=== PATIENT | female | born 1950 | race African-American/Black ===

== ENCOUNTER 2020-03-18 13:32 | Inpatient (IN) ==
[2020-03-18] MEDS ORDERED: ONDANSETRON 4 MG/2 ML VIAL IV PRN (16:00)
[2020-03-18] MEDS ORDERED: ALBUTEROL 2.5 MG/3 ML NEB RESP TX PRN (16:00)
[2020-03-18] MEDS ORDERED: DEXTROSE 50% 25 GM/50 ML VIAL IV PRN ×2 (16:08→17:54)
[2020-03-18] MEDS ORDERED: GLUCAGON 1 MG VIAL IM PRN ×2 (16:08→17:54)
[2020-03-18 17:13] LABS: Basophils % 0.1 % (0.0-0.8); Hematocrit 28.8 VOL% (35.7-47.0); Hemoglobin 8.8 GM/DL (12.0-16.0); Immature Granulocytes % 0.7 %; Immature Granulocytes Absolute 0.08 #; Lymphocytes # 1.1 10*3/uL (1.4-4.0); Lymphocytes % 9.7 % (21.3-54.2); Mean Corpuscular HGB Conc 30.6 GM/DL (32-36); Mean Corpuscular Volume 93.5 FL (87-102); Mean Platelet Volume 11.3 FL (9.6-12.0); Monocytes % 9.6 % (1.7-12.7); NRBC # 0.71 10*3/uL; Neutrophils % 79.9 % (38.7-73.9); Platelet Count 116 T/CUMM (130-400); Red Blood Count 3.08 MC/CUMM (3.8-5.5); Red Cell Distribution Width 17.8 % (9.3-17.3); White Blood Count 11.1 T/CUMM (4-12)
[2020-03-18 17:24] LABS: INR 1.7; PT Patient Result 17.4 SECS (9.8-11.9)
[2020-03-18] MEDS: LACTATED RINGERS 1,000 ML IV SCH (17:37)
[2020-03-18] MEDS: cefTRIAXone 1,000 MG in SYRINGE 1 EACH IV SCH (17:39)
[2020-03-18 17:40] LABS: Albumin 2.8 G/DL (3.4-5.0); Calcium 9.7 MG/DL (8.5-10.1); Osmolality,Calculated 313.7 MOS/KG (273-304); Thyroid Stimulating Hormone 0.212 uIU/ml (0.358-3.74); Total Protein 6.6 G/DL (6.4-8.3)
[2020-03-18 18:24] LABS: Hepatitis B Core IgM Quant 0.09 Index; Hepatitis B Surface Ag Quant < 0.10 Index; Hepatitis B Surface Ag Result Negative (Negative); Hepatitis C Virus Ab Quant < 0.02 Index; Hepatitis C Virus Ab Result Negative (Negative)
[2020-03-18 18:32] LABS: Bilirubin,Urine Negative (Negative); Blood, Urine Large mg/dL (Negative); Glucose,Urine (UA) Negative (Negative); Hyaline Casts,Urine 1 /LPF (0-3); Ketones,Urine Negative (Negative); Mucus,Urine Occasional /LPF (Occasional); Nitrite,Urine Negative (Negative); Protein,Urine 100 MG/DL; RBC,Urine 202 /HPF (0-4); Squamous Epithelial Cell,Urine Occasional /HPF (0-10); Transitional Epi Cells,Urine Occasional /HPF (<1); Urine Appearance CLOUDY (Clear); Urine Color Amber (Yellow); Urine Specific Gravity 1.033 (1.001-1.035); WBC,Urine 26 /HPF (0-6)
[2020-03-18] MEDS: ALBUTEROL/IPRATROPIUM 3 ML NEB RESP TX SCH (19:19)
[2020-03-18] MEDS: cloNIDine 0.1 MG TABLET PO PRN ×2 (20:37→22:18)
[2020-03-18] MEDS: ENOXAPARIN 40 MG/0.4 ML SYRINGE SUBCUT SCH (20:37)
[2020-03-18] MEDS: PANTOPRAZOLE 40 MG VIAL IV SCH (20:37)
[2020-03-18] MEDS: INSULIN LISPRO 100 UNIT/ML SUBCUT SCH (20:38)
[2020-03-19] MEDS: INSULIN LISPRO 100 UNIT/ML SUBCUT SCH ×6 (00:11→21:11)
[2020-03-19] MEDS: ALBUTEROL/IPRATROPIUM 3 ML NEB RESP TX SCH ×4 (01:45→19:38)
[2020-03-19] MEDS: cloNIDine 0.1 MG TABLET PO PRN ×2 (02:19→03:44)
[2020-03-19] MEDS ORDERED: hydrALAZINE 20 MG/1 ML VIAL IV ONE (04:38)
[2020-03-19 05:17] LABS: Alanine Aminotransferase 934 U/L (13-56); Albumin 2.6 G/DL (3.4-5.0); Alkaline Phosphatase 89 U/L (45-117); Aspartate Amino Transferase 595 U/L (0-37); Blood Urea Nitrogen 31 MG/DL (7-18); Calcium 9.8 MG/DL (8.5-10.1); Estimated Glom Filtration Rate 53 ML/MIN; Glucose 164 MG/DL (74-106); Total Protein 6.2 G/DL (6.4-8.3)
[2020-03-19] MEDS: LACTATED RINGERS 1,000 ML IV SCH (06:35)
[2020-03-19] MEDS ORDERED: cloNIDine 0.1 MG TABLET PO PRN (06:59)
[2020-03-19 07:53] LABS: % Iron Saturation 8.7 % (18-50)
[2020-03-19] MEDS ORDERED: SODIUM CHLORIDE 23.4% CONC INJ 38.5 MEQ in STERILE WATER INJ 1,000 ML IV SCH (08:30)
[2020-03-19] MEDS: levETIRAcetam LIQUID 100 MG/ML 30 ML/BOTTLE PO SCH ×2 (09:20→21:13)
[2020-03-19] MEDS: cloNIDine 0.1 MG TABLET PO SCH ×3 (09:20→20:15)
[2020-03-19] MEDS: hydrALAZINE 10 MG TABLET PO SCH ×3 (09:21→20:15)
[2020-03-19] MEDS: POTASSIUM CHLORIDE 20 MEQ/15 ML UDCUP PER TUBE PRN ×3 (09:24→15:19)
[2020-03-19] MEDS: hydrALAZINE 20 MG/1 ML VIAL IV PRN ×2 (12:14→21:10)
[2020-03-19 14:11] LABS: ABG Base Excess -4.2 MMOL/L (-2.5-2.5); ABG HCO3 20.9 MMOL/L (20-26); ABG PCO2 32.4 MM HG (35-48); ABG PH 7.396 (7.35-7.45); ABG TCO2 18.3 MMOL/L (23-27); Allen Test Positive
[2020-03-19] MEDS ORDERED: FUROSEMIDE 40 MG/4 ML VIAL IV ONE (16:40)
[2020-03-19] MEDS: cefTRIAXone 1,000 MG in SYRINGE 1 EACH IV SCH (17:07)
[2020-03-19 17:15] LABS: Calcium 9.1 MG/DL (8.5-10.1)
[2020-03-19] MEDS: carvediloL 25 MG TABLET PO SCH (20:15)
[2020-03-19] MEDS: SIMVASTATIN 40 MG TABLET PO SCH (21:11)
[2020-03-19] MEDS: MONTELUKAST 10 MG TABLET PO SCH (21:11)
[2020-03-19] MEDS: PANTOPRAZOLE 40 MG VIAL IV SCH (21:13)
[2020-03-19] MEDS: ENOXAPARIN 40 MG/0.4 ML SYRINGE SUBCUT SCH (21:13)
[2020-03-20] MEDS: INSULIN LISPRO 100 UNIT/ML SUBCUT SCH ×6 (00:21→21:46)
[2020-03-20] MEDS: POTASSIUM CHLORIDE 20 MEQ/15 ML UDCUP PER TUBE PRN ×4 (00:21→13:30)
[2020-03-20 04:16] LABS: Albumin 2.5 G/DL (3.4-5.0); Bilirubin,Total 0.7 MG/DL (0.2-1.0); Calcium 9.2 MG/DL (8.5-10.1); Total Protein 6.1 G/DL (6.4-8.3)
[2020-03-20] MEDS: ALBUTEROL/IPRATROPIUM 3 ML NEB RESP TX SCH ×3 (07:10→19:24)
[2020-03-20] MEDS ORDERED: MAGNESIUM SULF RIDER 2 GM in PREMIX 1 EACH IV PRN (08:09)
[2020-03-20] MEDS ORDERED: MAGNESIUM SULF RIDER 4 GM in PREMIX 1 EACH IV PRN (08:09)
[2020-03-20] MEDS: FUROSEMIDE 40 MG/4 ML VIAL IV SCH ×2 (09:23→15:35)
[2020-03-20] MEDS: levETIRAcetam LIQUID 100 MG/ML 30 ML/BOTTLE PO SCH ×2 (09:23→21:47)
[2020-03-20] MEDS: THIAMINE 100 MG TABLET PO SCH (09:24)
[2020-03-20] MEDS: cloNIDine 0.1 MG TABLET PO SCH ×3 (09:24→21:46)
[2020-03-20] MEDS: carvediloL 25 MG TABLET PO SCH ×2 (09:24→21:46)
[2020-03-20] MEDS: hydrALAZINE 10 MG TABLET PO SCH ×3 (09:24→21:46)
[2020-03-20] MEDS: ASPIRIN EC 81 MG TABLET PO SCH (09:24)
[2020-03-20] MEDS: cefTRIAXone 1,000 MG in SYRINGE 1 EACH IV SCH (17:43)
[2020-03-20] MEDS: PANTOPRAZOLE 40 MG VIAL IV SCH (21:45)
[2020-03-20] MEDS: MONTELUKAST 10 MG TABLET PO SCH (21:46)
[2020-03-20] MEDS: ENOXAPARIN 40 MG/0.4 ML SYRINGE SUBCUT SCH (21:46)
[2020-03-20] MEDS: SIMVASTATIN 40 MG TABLET PO SCH (21:46)
[2020-03-21] MEDS: INSULIN LISPRO 100 UNIT/ML SUBCUT SCH ×6 (00:54→22:28)
[2020-03-21 04:52] LABS: Basophils % 0.1 % (0.0-0.8); Eosinophils # 0.1 10*3/uL (0.0-0.87); Eosinophils % 0.9 % (0.00-10.9); Hematocrit 28.6 VOL% (35.7-47.0); Hemoglobin 9.2 GM/DL (12.0-16.0); Immature Granulocytes % 0.5 %; Immature Granulocytes Absolute 0.06 #; Lymphocytes # 1.7 10*3/uL (1.4-4.0); Lymphocytes % 14.1 % (21.3-54.2); Mean Corpuscular HGB Conc 32.2 GM/DL (32-36); Mean Corpuscular Volume 89.7 FL (87-102); Mean Platelet Volume 12.5 FL (9.6-12.0); Monocytes % 10.3 % (1.7-12.7); NRBC # 0.36 10*3/uL; Neutrophils % 74.1 % (38.7-73.9); Platelet Count 132 T/CUMM (130-400); Red Blood Count 3.19 MC/CUMM (3.8-5.5); Red Cell Distribution Width 17.8 % (9.3-17.3)
[2020-03-21 05:17] LABS: Albumin 2.3 G/DL (3.4-5.0); Bilirubin,Total 0.5 MG/DL (0.2-1.0); Calcium 8.7 MG/DL (8.5-10.1); Osmolality,Calculated 300.1 MOS/KG (273-304); Total Protein 5.8 G/DL (6.4-8.3)
[2020-03-21] MEDS: ALBUTEROL/IPRATROPIUM 3 ML NEB RESP TX SCH ×3 (07:39→19:39)
[2020-03-21] MEDS: cloNIDine 0.1 MG TABLET PO SCH ×3 (08:53→21:31)
[2020-03-21] MEDS: hydrALAZINE 10 MG TABLET PO SCH ×3 (08:53→21:31)
[2020-03-21] MEDS: carvediloL 25 MG TABLET PO SCH ×2 (08:53→21:31)
[2020-03-21] MEDS: THIAMINE 100 MG TABLET PO SCH (08:53)
[2020-03-21] MEDS: ASPIRIN EC 81 MG TABLET PO SCH (08:54)
[2020-03-21] MEDS: levETIRAcetam LIQUID 100 MG/ML 30 ML/BOTTLE PO SCH ×2 (08:54→21:31)
[2020-03-21] MEDS: FUROSEMIDE 40 MG/4 ML VIAL IV SCH ×2 (08:54→15:28)
[2020-03-21] MEDS: cefTRIAXone 1,000 MG in SYRINGE 1 EACH IV SCH (17:45)
[2020-03-21] MEDS: MONTELUKAST 10 MG TABLET PO SCH (21:31)
[2020-03-21] MEDS: SIMVASTATIN 40 MG TABLET PO SCH (21:31)
[2020-03-21] MEDS: PANTOPRAZOLE 40 MG VIAL IV SCH (21:32)
[2020-03-21] MEDS: ENOXAPARIN 40 MG/0.4 ML SYRINGE SUBCUT SCH (21:32)
[2020-03-22] MEDS: INSULIN LISPRO 100 UNIT/ML SUBCUT SCH ×6 (01:58→20:36)
[2020-03-22 05:39] LABS: Basophils % 0.1 % (0.0-0.8); Eosinophils # 0.1 10*3/uL (0.0-0.87); Eosinophils % 0.6 % (0.00-10.9); Hematocrit 30.8 VOL% (35.7-47.0); Hemoglobin 9.8 GM/DL (12.0-16.0); Immature Granulocytes % 0.6 %; Immature Granulocytes Absolute 0.06 #; Lymphocytes # 1.7 10*3/uL (1.4-4.0); Lymphocytes % 16.5 % (21.3-54.2); Mean Corpuscular HGB Conc 31.8 GM/DL (32-36); Mean Corpuscular Volume 87.7 FL (87-102); Mean Platelet Volume 11.2 FL (9.6-12.0); Monocytes % 10.4 % (1.7-12.7); NRBC # 0.14 10*3/uL; Neutrophils % 71.8 % (38.7-73.9); Platelet Count 157 T/CUMM (130-400); Red Blood Count 3.51 MC/CUMM (3.8-5.5); Red Cell Distribution Width 17.8 % (9.3-17.3); White Blood Count 10.3 T/CUMM (4-12)
[2020-03-22 06:04] LABS: Calcium 9.3 MG/DL (8.5-10.1); Osmolality,Calculated 290.7 MOS/KG (273-304)
[2020-03-22] MEDS: ALBUTEROL/IPRATROPIUM 3 ML NEB RESP TX SCH ×3 (07:10→19:50)
[2020-03-22] MEDS: FUROSEMIDE 40 MG/4 ML VIAL IV SCH ×2 (09:02→16:36)
[2020-03-22] MEDS: levETIRAcetam LIQUID 100 MG/ML 30 ML/BOTTLE PO SCH ×2 (09:03→20:38)
[2020-03-22] MEDS: carvediloL 25 MG TABLET PO SCH ×2 (09:03→20:39)
[2020-03-22] MEDS: ASPIRIN EC 81 MG TABLET PO SCH (09:03)
[2020-03-22] MEDS: hydrALAZINE 10 MG TABLET PO SCH ×3 (09:03→20:39)
[2020-03-22] MEDS: THIAMINE 100 MG TABLET PO SCH (09:03)
[2020-03-22] MEDS: cloNIDine 0.1 MG TABLET PO SCH ×3 (09:04→20:39)
[2020-03-22] MEDS ORDERED: POTASSIUM CHLORIDE 20 MEQ TABLET PO ONE (11:08)
[2020-03-22] MEDS: POTASSIUM CHLORIDE RIDER 10 MEQ in PREMIX 1 EACH IV SCH ×4 (12:12→17:34)
[2020-03-22] MEDS ORDERED: INFLUENZA VIRUS VACCINE 0.5 ML SYRINGE IM ONE (16:40)
[2020-03-22] MEDS: cefTRIAXone 1,000 MG in SYRINGE 1 EACH IV SCH (17:34)
[2020-03-22] MEDS: PANTOPRAZOLE 40 MG VIAL IV SCH (20:38)
[2020-03-22] MEDS: ENOXAPARIN 40 MG/0.4 ML SYRINGE SUBCUT SCH (20:38)
[2020-03-22] MEDS: MONTELUKAST 10 MG TABLET PO SCH (20:39)
[2020-03-22] MEDS: SIMVASTATIN 40 MG TABLET PO SCH (20:39)
[2020-03-23] MEDS: INSULIN LISPRO 100 UNIT/ML SUBCUT SCH ×6 (01:06→21:53)
[2020-03-23 08:47] LABS: Eosinophils # 0.2 10*3/uL (0.0-0.87); Eosinophils % 1.5 % (0.00-10.9); Hematocrit 30.5 VOL% (35.7-47.0); Hemoglobin 9.9 GM/DL (12.0-16.0); Immature Granulocytes % 0.8 %; Immature Granulocytes Absolute 0.08 #; Lymphocytes % 19.6 % (21.3-54.2); Mean Corpuscular HGB Conc 32.5 GM/DL (32-36); Mean Corpuscular Volume 88.7 FL (87-102); Monocytes % 12.2 % (1.7-12.7); NRBC # 0.07 10*3/uL; Neutrophils % 65.9 % (38.7-73.9); Platelet Count 175 T/CUMM (130-400); Red Blood Count 3.44 MC/CUMM (3.8-5.5); Red Cell Distribution Width 18.2 % (9.3-17.3)
[2020-03-23 09:07] LABS: Calcium 9.1 MG/DL (8.5-10.1); Osmolality,Calculated 292.1 MOS/KG (273-304)
[2020-03-23 09:23] LABS: Hypochromasia 1+; Lymphocytes 12 % (20-55); Microcytosis Slight; Platelet Estimate Adequate; Segmented Neutrophils 74 % (50-85); Total Cells Counted 100
[2020-03-23] MEDS: ALBUTEROL/IPRATROPIUM 3 ML NEB RESP TX SCH ×3 (09:36→20:15)
[2020-03-23] MEDS: FUROSEMIDE 40 MG/4 ML VIAL IV SCH ×2 (10:03→17:11)
[2020-03-23] MEDS: cloNIDine 0.1 MG TABLET PO SCH ×3 (10:08→21:52)
[2020-03-23] MEDS: levETIRAcetam LIQUID 100 MG/ML 30 ML/BOTTLE PO SCH ×2 (10:08→21:54)
[2020-03-23] MEDS: THIAMINE 100 MG TABLET PO SCH (10:08)
[2020-03-23] MEDS: ASPIRIN EC 81 MG TABLET PO SCH (10:08)
[2020-03-23] MEDS: carvediloL 25 MG TABLET PO SCH ×2 (10:08→21:52)
[2020-03-23] MEDS: hydrALAZINE 10 MG TABLET PO SCH ×3 (10:10→21:52)
[2020-03-23] MEDS: POTASSIUM CHLORIDE 20 MEQ/15 ML UDCUP PER TUBE PRN (10:56)
[2020-03-23] MEDS: cefTRIAXone 1,000 MG in SYRINGE 1 EACH IV SCH (18:07)
[2020-03-23] MEDS: MONTELUKAST 10 MG TABLET PO SCH (21:52)
[2020-03-23] MEDS: SIMVASTATIN 40 MG TABLET PO SCH (21:52)
[2020-03-23] MEDS: ENOXAPARIN 40 MG/0.4 ML SYRINGE SUBCUT SCH (21:53)
[2020-03-23] MEDS: PANTOPRAZOLE 40 MG VIAL IV SCH (21:54)
[2020-03-24] MEDS: INSULIN LISPRO 100 UNIT/ML SUBCUT SCH ×6 (01:22→20:06)
[2020-03-24] MEDS: ALBUTEROL/IPRATROPIUM 3 ML NEB RESP TX SCH ×3 (07:25→19:24)
[2020-03-24 09:03] LABS: Calcium 9.3 MG/DL (8.5-10.1); Osmolality,Calculated 282.4 MOS/KG (273-304)
[2020-03-24] MEDS: ASPIRIN EC 81 MG TABLET PO SCH (09:22)
[2020-03-24] MEDS: cloNIDine 0.1 MG TABLET PO SCH ×3 (09:22→21:18)
[2020-03-24] MEDS: THIAMINE 100 MG TABLET PO SCH (09:22)
[2020-03-24] MEDS: carvediloL 25 MG TABLET PO SCH ×2 (09:22→21:18)
[2020-03-24] MEDS: FUROSEMIDE 40 MG/4 ML VIAL IV SCH ×2 (09:23→16:40)
[2020-03-24] MEDS: hydrALAZINE 10 MG TABLET PO SCH ×3 (09:23→21:18)
[2020-03-24] MEDS: levETIRAcetam LIQUID 100 MG/ML 30 ML/BOTTLE PO SCH ×2 (09:26→21:20)
[2020-03-24] MEDS ORDERED: POTASSIUM CHLORIDE 20 MEQ TABLET PO ONE (10:58)
[2020-03-24 11:40] LABS: Albumin 2.5 G/DL (3.4-5.0); Bilirubin,Total 0.6 MG/DL (0.2-1.0); Calcium 9.4 MG/DL (8.5-10.1); Osmolality,Calculated 282.4 MOS/KG (273-304); Total Protein 6.6 G/DL (6.4-8.3)
[2020-03-24] MEDS: ACETAMINOPHEN 325 MG TABLET PO PRN (15:41)
[2020-03-24] MEDS: cefTRIAXone 1,000 MG in SYRINGE 1 EACH IV SCH (17:46)
[2020-03-24] MEDS: SIMVASTATIN 40 MG TABLET PO SCH (21:18)
[2020-03-24] MEDS: MONTELUKAST 10 MG TABLET PO SCH (21:18)
[2020-03-24] MEDS: FLUTICASONE 50 MCG NASAL SPRAY 16 GM BOTTLE BOTH NARES SCH (21:20)
[2020-03-24] MEDS: ENOXAPARIN 40 MG/0.4 ML SYRINGE SUBCUT SCH (21:21)
[2020-03-24] MEDS: PANTOPRAZOLE 40 MG VIAL IV SCH (21:21)
[2020-03-25] MEDS: INSULIN LISPRO 100 UNIT/ML SUBCUT SCH ×6 (01:54→23:22)
[2020-03-25 07:17] LABS: Albumin 2.4 G/DL (3.4-5.0); Bilirubin,Total 0.8 MG/DL (0.2-1.0); Calcium 9.2 MG/DL (8.5-10.1); Osmolality,Calculated 277.5 MOS/KG (273-304); Total Protein 6.4 G/DL (6.4-8.3)
[2020-03-25] MEDS: ALBUTEROL/IPRATROPIUM 3 ML NEB RESP TX SCH ×3 (07:50→20:10)
[2020-03-25] MEDS: THIAMINE 100 MG TABLET PO SCH (08:39)
[2020-03-25] MEDS: ASPIRIN EC 81 MG TABLET PO SCH (08:39)
[2020-03-25] MEDS: carvediloL 25 MG TABLET PO SCH ×2 (08:40→23:21)
[2020-03-25] MEDS: hydrALAZINE 10 MG TABLET PO SCH ×3 (08:40→23:21)
[2020-03-25] MEDS: cloNIDine 0.1 MG TABLET PO SCH ×3 (08:41→23:20)
[2020-03-25] MEDS: FLUTICASONE 50 MCG NASAL SPRAY 16 GM BOTTLE BOTH NARES SCH (08:42)
[2020-03-25] MEDS: FUROSEMIDE 40 MG/4 ML VIAL IV SCH (08:42)
[2020-03-25] MEDS: levETIRAcetam LIQUID 100 MG/ML 30 ML/BOTTLE PO SCH ×2 (08:46→23:23)
[2020-03-25] MEDS: ACETAMINOPHEN 325 MG TABLET PO PRN ×2 (13:09→23:20)
[2020-03-25] MEDS ORDERED: POTASSIUM CHLORIDE 20 MEQ TABLET PO ONE (13:45)
[2020-03-25] MEDS: POTASSIUM CHLORIDE RIDER 10 MEQ in PREMIX 1 EACH IV SCH ×4 (14:54→19:10)
[2020-03-25] MEDS: GABAPENTIN 100 MG CAPSULE PO SCH ×2 (15:45→23:21)
[2020-03-25] MEDS: cefTRIAXone 1,000 MG in SYRINGE 1 EACH IV SCH (17:49)
[2020-03-25] MEDS: MONTELUKAST 10 MG TABLET PO SCH (23:21)
[2020-03-25] MEDS: ENOXAPARIN 40 MG/0.4 ML SYRINGE SUBCUT SCH (23:22)
[2020-03-25] MEDS: PANTOPRAZOLE 40 MG VIAL IV SCH (23:22)
[2020-03-26 06:00] LABS: Basophils % 0.5 % (0.0-0.8); Eosinophils # 0.2 10*3/uL (0.0-0.87); Eosinophils % 3.2 % (0.00-10.9); Hematocrit 29.3 VOL% (35.7-47.0); Hemoglobin 9.2 GM/DL (12.0-16.0); Immature Granulocytes % 0.3 %; Immature Granulocytes Absolute 0.02 #; Lymphocytes % 30.4 % (21.3-54.2); Mean Corpuscular HGB Conc 31.4 GM/DL (32-36); Mean Corpuscular Volume 89.6 FL (87-102); Mean Platelet Volume 11.3 FL (9.6-12.0); Monocytes % 11.4 % (1.7-12.7); Neutrophils % 54.2 % (38.7-73.9); Platelet Count 272 T/CUMM (130-400); Red Blood Count 3.27 MC/CUMM (3.8-5.5); Red Cell Distribution Width 18.6 % (9.3-17.3); White Blood Count 6.6 T/CUMM (4-12)
[2020-03-26 06:33] LABS: Calcium 9.4 MG/DL (8.5-10.1); Osmolality,Calculated 283.1 MOS/KG (273-304)
[2020-03-26 06:53] LABS: Albumin 2.4 G/DL (3.4-5.0); Calcium 9.3 MG/DL (8.5-10.1); Osmolality,Calculated 278.5 MOS/KG (273-304); Total Protein 6.2 G/DL (6.4-8.3)
[2020-03-26] MEDS: ALBUTEROL/IPRATROPIUM 3 ML NEB RESP TX SCH ×3 (07:12→19:36)
[2020-03-26] MEDS: FLUTICASONE 50 MCG NASAL SPRAY 16 GM BOTTLE BOTH NARES SCH ×3 (07:27→21:37)
[2020-03-26] MEDS: INSULIN LISPRO 100 UNIT/ML SUBCUT SCH ×6 (07:27→21:31)
[2020-03-26] MEDS: cloNIDine 0.1 MG TABLET PO SCH ×3 (08:34→21:32)
[2020-03-26] MEDS: hydrALAZINE 10 MG TABLET PO SCH ×3 (08:34→21:32)
[2020-03-26] MEDS: carvediloL 25 MG TABLET PO SCH ×2 (08:34→21:32)
[2020-03-26] MEDS: GABAPENTIN 100 MG CAPSULE PO SCH ×2 (08:35→21:32)
[2020-03-26] MEDS: ASPIRIN EC 81 MG TABLET PO SCH (08:35)
[2020-03-26] MEDS: THIAMINE 100 MG TABLET PO SCH (08:35)
[2020-03-26] MEDS: levETIRAcetam LIQUID 100 MG/ML 30 ML/BOTTLE PO SCH ×2 (08:35→21:33)
[2020-03-26] MEDS: ACETAMINOPHEN 325 MG TABLET PO PRN (16:33)
[2020-03-26] MEDS: ENOXAPARIN 40 MG/0.4 ML SYRINGE SUBCUT SCH (21:32)
[2020-03-26] MEDS: PANTOPRAZOLE 40 MG VIAL IV SCH (21:33)
[2020-03-26] MEDS: MONTELUKAST 10 MG TABLET PO SCH (21:37)
[2020-03-27] MEDS: INSULIN LISPRO 100 UNIT/ML SUBCUT SCH ×4 (03:00→12:07)
[2020-03-27 06:43] LABS: Basophils % 0.3 % (0.0-0.8); Eosinophils # 0.2 10*3/uL (0.0-0.87); Eosinophils % 2.4 % (0.00-10.9); Hematocrit 28.6 VOL% (35.7-47.0); Immature Granulocytes % 0.3 %; Immature Granulocytes Absolute 0.02 #; Lymphocytes # 1.8 10*3/uL (1.4-4.0); Lymphocytes % 29.6 % (21.3-54.2); Mean Corpuscular HGB Conc 31.5 GM/DL (32-36); Mean Corpuscular Volume 89.9 FL (87-102); Mean Platelet Volume 10.9 FL (9.6-12.0); Monocytes % 13.5 % (1.7-12.7); Neutrophils % 53.9 % (38.7-73.9); Platelet Count 279 T/CUMM (130-400); Red Blood Count 3.18 MC/CUMM (3.8-5.5); Red Cell Distribution Width 18.3 % (9.3-17.3); White Blood Count 6.2 T/CUMM (4-12)
[2020-03-27] MEDS: ALBUTEROL/IPRATROPIUM 3 ML NEB RESP TX SCH (07:11)
[2020-03-27 07:12] LABS: Albumin 2.3 G/DL (3.4-5.0); Bilirubin,Total 1.1 MG/DL (0.2-1.0); Calcium 9.6 MG/DL (8.5-10.1); Osmolality,Calculated 279.5 MOS/KG (273-304); Total Protein 6.2 G/DL (6.4-8.3)
[2020-03-27] MEDS: GABAPENTIN 100 MG CAPSULE PO SCH (09:12)
[2020-03-27] MEDS: THIAMINE 100 MG TABLET PO SCH (09:12)
[2020-03-27] MEDS: hydrALAZINE 10 MG TABLET PO SCH (09:12)
[2020-03-27] MEDS: ASPIRIN EC 81 MG TABLET PO SCH (09:12)
[2020-03-27] MEDS: cloNIDine 0.1 MG TABLET PO SCH (09:12)
[2020-03-27] MEDS: carvediloL 25 MG TABLET PO SCH (09:12)
[2020-03-27] MEDS: FLUTICASONE 50 MCG NASAL SPRAY 16 GM BOTTLE BOTH NARES SCH (09:13)
[2020-03-27] MEDS: levETIRAcetam LIQUID 100 MG/ML 30 ML/BOTTLE PO SCH (09:13)
[2020-03-27 11:59] VITALS: BP 131/87
== END 2020-03-27 14:50 | disposition home or self-care (01) | DRG 91 ==
LOC: SUATTDRO 15:36 → N.ICU 15:36 → N.4E 03-21 15:07
PROVIDERS: ADMIT Internal Medicine; ATTEND Internal Medicine